=== PATIENT | female | born 1990 | race African-American/Black ===

== ENCOUNTER 2024-04-24 06:30 | Day surgery (SDC) | payer OTHER ==
[~2024-04-24 06:30] MED LIST: ceFAZolin 2 GM VIAL ONE
[2024-04-24 07:02] LABS: HCG UR QUAL NEGATIVE
[2024-04-24 07:06] VITALS: O2SAT 100
[2024-04-24] MEDS ORDERED: BUPIVACAINE 0.5% PF 10 ML VIAL ONE (07:06)
[2024-04-24] MEDS: LACTATED RINGERS 1,000 ML IV ONE (07:06)
[2024-04-24] MEDS ORDERED: LIDOCAINE 1%-EPI 1:100000 20 ML MDV ONE (07:07)
[2024-04-24] MEDS ORDERED: fentaNYL 100 MCG/2 ML VIAL ONE (07:08)
[2024-04-24] MEDS ORDERED: MIDAZOLAM 2 MG/2 ML VIAL ONE (07:08)
[2024-04-24] MEDS ORDERED: PROPOFOL 200 MG/20 ML VIAL IVP ONE (07:08)
[2024-04-24] MEDS ORDERED: LIDOCAINE-PF 2% 10 ML AMP SUBQ ONE (07:08)
[2024-04-24] MEDS ORDERED: ONDANSETRON 4 MG/2 ML VIAL ONE (07:09)
[2024-04-24] MEDS ORDERED: DEXAMETHASONE 4 MG/ML VIAL ONE (07:09)
[2024-04-24] MEDS: ACETAMINOPHEN 500 MG TABLET PO ONE (07:11)
--- NOTE | 2024-04-24 07:25 | ANESTHESIA ---
Pre-Anesthesia VS, & Labs - Diagnosis RIGHT BREAST MASS - Procedure EXCISIONAL BREAST BIOPSY Vital Signs: Temp Pulse Resp BP Pulse Ox O2 Flow Rate 36.3 C L 56 L 16 118/71 100 04/24/24 06:54 04/24/24 06:54 04/24/24 06:54 04/24/24 06:54 04/24/24 06:54 Height: 5 ft 10 in Weight (kg): 77.5 kg Body Mass Index: 24.5 BMI Classification: Normal - NPO >8 hours - Is Patient ?: No Home Medications and Allergies Allergies/Adverse Reactions: Allergies Allergy/AdvReac Type Severity Reaction Status Date / Time Sulfa (Sulfonamide Allergy Hives Verified 04/14/24 12:40 Antibiotics) Anes History & Medical History - Anesthetic History Anesthesia Complications: reports: No previous complications (has never had anesthesia before) Family history of Anesthesia Complications: Denies Family history of Malignant Hyperthermia: Denies - Medical History Cardiovascular: reports: None Pulmonary: reports: None Gastrointestinal: reports: None Urinary: reports: None Neuro: reports: None Musculoskeletal: reports: None Endocrine/Autoimmune: reports: None Blood Disorders: reports: None Skin: reports: None Smoking Status: Current every day smoker (vape with nicotine) Psychosocial: reports: No issues indicated History of Cancer?: No Results - EKG Results EKG Comparison: Reviewed EKG, Normal EKG Exam General: Alert, Oriented x3, Cooperative, No acute distress Dental: WNL Mouth Openin Fingerbreadth Neck Mobility: Normal Mallampati classification: I Respiratory: Lungs clear, Normal breath sounds, No respiratory distress, No accessory muscle use Cardiovascular: Regular rate, Normal S1, Normal S2, No murmurs Mental/Cognitive Status: Alert/Oriented X3, Normal for patient Cognitive Status: Within normal limits Plan Anesthesia Type: General Consent for Procedure(s) Verified and Reviewed: Yes Code Status: Attempt Resuscitation ASA classification: 1-Healthy patient Is this case an emergency?: No
[2024-04-24] MEDS ORDERED: fentaNYL 100 MCG/2 ML VIAL IVP PRN (08:28)
[2024-04-24] MEDS ORDERED: ATROPINE ABBOJECT 1 MG/10 ML SYRINGE IVP PRN (08:28)
[2024-04-24] MEDS ORDERED: HYDROmorphone 0.5 MG/0.5 ML SYRINGE IVP PRN ×2 (08:28→08:30)
[2024-04-24] MEDS ORDERED: METOCLOPRAMIDE 10 MG/2 ML VIAL IVP PRN (08:28)
[2024-04-24] MEDS ORDERED: MORPHINE 2 MG/ML CARPUJECT IVP PRN (08:28)
[2024-04-24] MEDS ORDERED: ONDANSETRON 4 MG/2 ML VIAL IVP PRN ×2 (08:28→08:30)
[2024-04-24] MEDS ORDERED: NALOXONE 0.4 MG/ML VIAL IVP PRN (08:28)
[2024-04-24] MEDS ORDERED: ePHEDrine 50 MG/ML VIAL IVP PRN (08:28)
[2024-04-24] MEDS ORDERED: oxyCODONE 5 MG TABLET PO PRN (08:30)
[2024-04-24] MEDS: LIDOCAINE 1%-EPI 1:100000 50 ML VIAL SUBQ ONE (08:30)
[2024-04-24] MEDS: BUPIVACAINE 0.5% PF 30 ML VIAL INFIL ONE (08:30)
[2024-04-24] MEDS: LACTATED RINGERS 300 ML IV ONE (08:34)
--- NOTE | 2024-04-24 08:35 | OPERATIVE REPORT ---
Operative Report - General Procedure Date: 04/24/24 Planned Procedure: right breast excisional biopsy Pre-Op Diagnosis: right breast mass Procedure Performed: right breast excisional biopsy Post Op Diagnosis: right breast mass - Procedure Note Primary Surgeon: Dr. Dasia Carrasco Anesthesia Provider: Crystal Kim CRNA Anesthesia Technique: General LMA, Local Pathology: right breast mass Estimated Blood Loss (mL): 2 Indications: The patient has a right breast mass that has been present for approximately 4 months. It has increased in size and become increasingly painful especially during menstrual cycles over the last several months. 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 For definitive diagnosis, and to treat the patient's symptoms, we discussed the risks, benefits, and alternatives of excisional biopsy which include but are not limited to bleeding, infection, damage to surrounding structures, numbness of the nipple, and the need for further surgeries or procedures. The patient voiced understanding, her questions were answered, and she wished to proceed. A consent was signed by the patient prior to surgery. Findings: 1.Right breast mass measuring 4.5 x 4 x 3 cm Complications: None - Other Other Information/Narrative: The patient was taken to the operating room and placed in the supine position. Preop antibiotics were given. ERAS medications were given. The patient was prepped and draped in the usual sterile fashion. A preop surgical timeout was performed. Attention was turned to the patient's right breast. An periareolar incision was made from the 3:00 to 7:00 positions. Skin flaps were raised superiorly and inferiorly to the incision, as little dissection as possible was performed in the subareolar plane to limit nipple desensitization after surgery. The dissection was carried down to the palpable mass which was then freed from the surrounding tissue circumferentially. The specimen was oriented short superior, long lateral, double anterior on the back table, and measured 4.5 x 4 x 3 cm in greatest dimensions. The specimen was sent to mammography and the biopsy clip was confirmed to be within the specimen.The edges of the biopsy cavity were inspected and there were no palpable abnormalities. Hemostasis was confirmed. The biopsy cavity was irrigated with warm normal saline, additional local was injected, and again hemostasis was confirmed. Next, the deep dermal tissues were closed with 3-0 Vicryl in an interrupted fashion. Finally, the skin was closed with 4-0 Monocryl in a running subcuticular fashion. The patient tolerated the procedure well. There were no complications. All sponge and needle counts were correct at the end of the case.
[2024-04-24] MEDS ORDERED: LACTATED RINGERS 1,000 ML IV SCH (09:00)
[2024-04-24 09:25] VITALS: BP 118/72
--- NOTE | 2024-04-24 11:03 | ANESTHESIA POST OP EVALUATION ---
Anesthesia Post Eval - Post Anesthesia Eval Vitals: Last Vital Signs Temp 36.6 C 04/24/24 09:17 Pulse 60 04/24/24 09:17 Resp 16 04/24/24 09:17 BP 118/72 04/24/24 09:17 Pulse Ox 100 04/24/24 09:17 O2 Flow Rate CV Function Including HR & BP: Stable Pain Control: Satisfactory Nausea & Vomiting: Negative Mental Status: Baseline Respiratory Status: Airway Patent Hydration Status: Satisfactory Anesthesia Complications: None
[2024-04-24] MEDS ORDERED: IBUPROFEN 600 MG TABLET PO SCH (12:00)
--- NOTE | 2024-04-24 13:39 | Mammography Report ---
SPECIMEN RIGHT BREAST: 04/24/2024 CLINICAL: Right breast specimen. Correlation is made to exams dated: 02/01/2024 mammogram, 01/22/2024 mammogram, 01/22/2024 ultrasound, an d 02/01/2024 ultrasound biopsy - [facility]. A surgical specimen was imaged for the mass located in the right breast at 5 o'clock posterior depth . IMPRESSION: SPECIMEN The imaged specimen includes the mass and a biopsy clip. This exam was interpreted at Station ID: [id number]. Clarence garrett/jh:04/24/2024 09:38:35 BI-RADS CATEGORY: () - Unspecified - other recall n/a LATERALITY: (B)
== END 2024-04-24 06:31 | disposition home or self-care (01) ==
LOC: SDS 06:30
PROVIDERS: ATTEND Surgery
PROC: 0HBT0ZX Excision of Right Breast, Open Approach, Diagnostic (ICD-10-PCS; principal; 2024-04-24 07:30)
DX: N63.14 Unspecified lump in the right breast, lower inner quadrant (principal); F17.290 Nicotine dependence, other tobacco product, uncomplicated
CPT/HCPCS: 19120; 76098; 81025; A9270; J3490; J7120